=== PATIENT | female | born 1950 | race Caucasian/White ===

== ENCOUNTER → 2018-06-06 | Outpatient (CLI) | payer OTHER ==
[~2018-06-06] MED LIST: AMLO5TAB10 PO; ASPI81TA50 PO; ENAL10TA PO; FEXO1TAB31 PO; GABA-585 PO; GLUC100018 PO; HYDR-2145 PO; MONT10TA9 PO; OMEG-57 PO; OMEP20CA10 PO; SIMV20TA3 PO; TRAM50TA PO
--- NOTE | 2018-06-06 11:52 | CARD ---
MR#: [id number] Date of Study: 06/06/2018 Ordering Physician: ROOSEVELT BUENO, Referring Physician: ROOSEVELT BUENO, Tech: Zakia Fry [facility] APPROVED REPORT EXAM: Two-dimensional and M-mode echocardiogram with Doppler and color Doppler. Other Information Quality : AverageHR: 80bpm Rhythm : NSRTechnically limited study due to body habitus and COPD. INDICATION Murmur 2D DIMENSIONS RVDd2.9 (2.9-3.5cm)Left Atrium(2D)3.4 (1.6-4.0cm) IVSd1.1 (0.7-1.1cm)Aortic Root(2D)2.9 (2.0-3.7cm) LVDd4.6 (3.9-5.9cm)LVOT Diameter1.9 (1.8-2.4cm) PWd0.8 (0.7-1.1cm)LVDs2.9 (2.5-4.0cm) FS (%) 37.8 %SV67.2 ml LVEF(%)68.0 (>50%) Aortic Valve AoV Peak Omer.173.0cm/sAoV VTI34.7cm AO Peak GR.12.0mmHgLVOT Peak Omer.101.1cm/s AO Mean GR.6mmHgAVA (VMAX)1.72cm2 ELIOT (VTI)1.70cm2 Mitral Valve MV E Wctlevio88.4cm/sMV DECEL [id number] MV A Ltfksfgk853.9cm/sE/A Ratio0.6 MV A Ufmecycs549ns Pulmonary Valve PV Peak Ysjggcjp98.1cm/s Tricuspid Valve TR P. Dfezknxb304qg/sRAP SJDAPXVR6ycCx TR Peak Gr.28lgYpPZFX25edXe LEFT VENTRICLE The left ventricle is normal size. There is normal left ventricular wall thickness. The left ventricu lar systolic function is normal. The Ejection Fraction is 60-65%. There is normal LV segmental wall m otion. Transmitral Doppler flow pattern is Grade I-abnormal relaxation pattern. RIGHT VENTRICLE The right ventricle is normal size. There is normal right ventricular wall thickness. The right ventr icular systolic function is normal. ATRIA The left atrium size is normal. The right atrium size is normal. The interatrial septum is intact wit h no evidence for an atrial septal defect or patent foramen ovale as noted on 2-D or Doppler imaging. AORTIC VALVE The aortic valve is normal in structure and function. The aortic valve is probably trileaflet. Dopple r and Color Flow revealed no significant aortic regurgitation. There is no significant aortic valvula r stenosis. MITRAL VALVE The mitral valve is normal in structure and function. There is no evidence of mitral valve prolapse. There is no mitral valve stenosis. Doppler and Color-flow revealed trace mitral regurgitation. TRICUSPID VALVE The tricuspid valve is normal in structure and function. Doppler and Color Flow revealed trace tricus pid regurgitation. The PA pressure was estimated at 29 mmHg. There is no tricuspid valve prolapse or vegetation. There is no tricuspid valve stenosis. PULMONIC VALVE The pulmonic valve is not well visualized. GREAT VESSELS The aortic root is normal in size. The ascending aorta is normal in size. The IVC is normal in size a nd collapses >50% with inspiration. PERICARDIAL EFFUSION There is no evidence of significant pericardial effusion. Critical Notification Critical Value: No <Conclusion> The left ventricular systolic function is normal. The Ejection Fraction is 60-65%. There is normal LV segmental wall motion. Transmitral Doppler flow pattern is Grade I-abnormal relaxation pattern. Trace mitral regurgitation. Trace tricuspid regurgitation. The PA pressure was estimated at 29 mmHg. There is no evidence of significant pericardial effusion. Signed by : Jose Manuel Lester, Electronically Approved : 06/06/2018 11:51:43
== END | disposition home or self-care (01) ==
LOC: ECHO 10:42
PROVIDERS: ATTEND Internal Medicine Cardiovascular Disease
DX: R01.1 Cardiac murmur, unspecified (principal); R06.09 Other forms of dyspnea
CPT/HCPCS: 93306